=== PATIENT | female | born 1965 | race Caucasian/White ===

== ENCOUNTER 2020-08-25 07:38 | Outpatient (REF) | payer OTHER, SELFPAY ==
--- NOTE | 2020-08-25 | MM_ITS ---
EXAMINATION: MM SCREENING DIGITAL BREAST TOMOSYNTHESIS, BILATERAL CLINICAL INFORMATION: Screening. Asymptomatic. Personal history benign right breast biopsy 2012. Family history breast cancer in mother. The lifetime risk of breast cancer based on the Tyrer-Cuzick Model is 30%. COMPARISON: Mammography: 08/20/2019, 08/18/2018, 07/29/2017 TECHNIQUE: Digital breast tomosynthesis is performed in both the craniocaudal and mediolateral oblique views along with computer-aided detection (CAD). Synthesized 2D images are generated from the tomosynthesis. Additional left MLO view is provided. FINDINGS: There are scattered areas of fibroglandular density (ACR BI-RADS breast composition Category b). Breast tissue borders on predominantly fatty. Background fibroglandular densities are stable. There is no interval mass or architectural abnormality or abnormal calcifications. Again, there is biopsy clip marker central outer right breast. No significant changes from prior studies. IMPRESSION: No mammographic evidence of malignancy. ASSESSMENT: BI-RADS 1: Negative RECOMMENDATION: 1. Routine annual mammography screening. 2. The lifetime risk of breast cancer based on the Tyrer-Cuzick Model is 30%. Additional annual adjunct screening with breast MRI may be of benefit in women with a risk score of 20% or greater. This patient's information was entered into a reminder system with a target due date for their next mammogram.
== END 2020-08-25 07:39 | disposition home or self-care (01) ==
LOC: HO.MAMMO 07:38
PROVIDERS: PCP Internal Medicine; Visit Provider Internal Medicine
DX: Z12.31 Encounter for screening mammogram for malignant neoplasm of breast (principal)
CPT/HCPCS: 77063; 77067; 78014

== ENCOUNTER 2020-11-13 07:48 | Outpatient (REF) | payer OTHER, SELFPAY ==
[2020-11-13 08:40] LABS: Basophils Absolute Auto 0.1 X10*3/uL (0.0-0.2); Basophils Percent Auto 0.6 % (0-2); Eosinophils Absolute Auto 0.3 X10*3/uL (0.0-0.4); Eosinophils Percent Auto 3.2 % (0-4); Hematocrit 41.1 % (37-47); Hemoglobin 13.4 g/dl (12.0-16.0); Imm Gran Abs Auto 0.04 X10*3/uL (0.00-0.03); Imm Gran Pct Auto 0.5 % (0.0-0.4); Lymphocytes Absolute Auto 2.8 X10*3/uL (1.2-4.9); Lymphocytes Percent Auto 33.8 % (20-40); MANUAL DIFF FLAG NO; Mean Corpuscular HGB Conc 32.6 g/dl (31.0-35.0); Mean Corpuscular Hemoglobin 29.7 pg (27.0-33.0); Mean Corpuscular Volume 91.1 fL (80-98); Mean Platelet Volume 10.1 fL (9.4-12.3); Monocytes Absolute Auto 0.6 X10*3/uL (0.1-1.2); Monocytes Percent Auto 7.6 % (2-11); Neutrophils Absolute Auto 4.6 X10*3/uL (2.0-8.3); Neutrophils Percent Auto 54.3 % (45-73); Platelet Count 376 X10*3/uL (160-400); Red Blood Count 4.51 X10*6/uL (4.20-5.50); Red Cell Distribution Width 13.4 % (11.0-16.0); White Blood Count 8.4 X10*3/uL (4.8-10.8)
[2020-11-13 09:25] LABS: Alanine Aminotransferase 29 U/L (0-31); Albumin Level 4.1 g/dL (3.5-5.0); Alkaline Phosphatase 66 U/L (39-117); Anion Gap 13 (12-20); Aspartate Amino Transferase 22 U/L (5-31); Bilirubin Total 0.4 mg/dL (0.0-1.0); Blood Urea Nitrogen 15 mg/dL (9-16); Calcium 8.8 mg/dL (8.4-10.2); Carbon Dioxide 24 mmol/L (22-29); Chloride 104 mmol/L (96-108); Cholesterol 186 mg/dL; Estimated Glomerular Filt Rate > 60; Glucose Fasting 104 mg/dL (60-99); HDL Cholesterol 50 mg/dL; LDL Cholesterol Calculated 118 mg/dl; Potassium 4.4 mmol/l (3.3-5.1); Sodium 137 mmol/L (135-145); Total Protein 7.1 g/dL (6.5-8.0); Triglycerides 94 mg/dL
[2020-11-13 09:49] LABS: Thyroid Stimulating Hormone 2.68 uIU/mL (0.32-4.0); Vitamin D 25-OH Total 27.4 ng/mL (>30)
== END 2020-11-13 07:49 | disposition home or self-care (01) ==
LOC: HO.LAB 07:48
PROVIDERS: PCP Internal Medicine; Visit Provider Internal Medicine
DX: Z00.00 Encounter for general adult medical examination without abnormal findings (principal); E55.9 Vitamin D deficiency, unspecified
CPT/HCPCS: 36415; 80053; 80061; 82306; 84443; 85025

== ENCOUNTER 2021-09-07 08:28 | Outpatient (REF) | payer OTHER, SELFPAY ==
--- NOTE | ~2021-09-07 | MM_ITS ---
EXAMINATION: MM SCREENING DIGITAL BREAST TOMOSYNTHESIS, BILATERAL CLINICAL INFORMATION: Screening. Asymptomatic. The lifetime risk of breast cancer based on the Tyrer-Cuzick Model is 27%. COMPARISON: Mammography: 08/25/2020, 08/20/2019, 08/18/2018 TECHNIQUE: Digital breast tomosynthesis is performed in both the craniocaudal and mediolateral oblique views along with computer-aided detection (CAD). Synthesized 2D images are generated from the tomosynthesis. FINDINGS: There are scattered areas of fibroglandular density (ACR BI-RADS breast composition Category b). Breast tissue composition borders on predominantly fatty. Background stromal and fibroglandular densities are stable. There is a biopsy clip marker again noted central right breast. There are no significant masses, abnormal calcifications, or other abnormalities. There is asymmetry of the breast, left slightly larger, similar to prior exams. MM/MM tomosynthesis screening BI IMPRESSION: No mammographic evidence of malignancy. ASSESSMENT: BI-RADS 2: Benign RECOMMENDATION: Routine annual mammography screening. This patient's information was entered into a reminder system with a target due date for their next mammogram.
== END 2021-09-07 08:29 | disposition home or self-care (01) ==
LOC: HO.MAMMO 08:28
PROVIDERS: PCP Internal Medicine; Visit Provider Internal Medicine
DX: Z12.31 Encounter for screening mammogram for malignant neoplasm of breast (principal)
CPT/HCPCS: 77063; 77067

== ENCOUNTER 2022-09-14 07:22 | Outpatient (REF) | payer OTHER, SELFPAY ==
--- NOTE | ~2022-09-14 | MM_ITS ---
EXAMINATION: MM SCREENING DIGITAL BREAST TOMOSYNTHESIS, BILATERAL CLINICAL INFORMATION: Screening. Asymptomatic. Tyrer-Cuzick Risk Score: 24% Additional annual screening with breast MRI may be of benefit in women with a score of 20% or greater. COMPARISON: Mammography: September 07, 2021 and studies dating back to December 05, 2013. TECHNIQUE: Digital breast tomosynthesis is performed in both the craniocaudal and mediolateral oblique views along with computer-aided detection (CAD). Synthesized 2D images are generated from the tomosynthesis. FINDINGS: The breasts are almost entirely fatty (ACR BI-RADS breast composition Category a). There are no significant masses, abnormal calcifications, or other abnormalities. MM/MM tomosynthesis screening BI IMPRESSION: No significant changes from prior exam. ASSESSMENT: BI-RADS 1: Negative RECOMMENDATION: Routine annual mammography screening. This patient's information was entered into a reminder system with a target due date for their next mammogram.
== END 2022-09-14 07:23 | disposition home or self-care (01) ==
LOC: HO.MAMMO 07:22
PROVIDERS: Visit Provider Internal Medicine
DX: Z12.31 Encounter for screening mammogram for malignant neoplasm of breast (principal)
CPT/HCPCS: 77063; 77067

== ENCOUNTER 2023-05-05 07:19 | Outpatient (REF) | payer OTHER, SELFPAY ==
[2023-05-05 07:35] LABS: MANUAL DIFF FLAG NO
[2023-05-05 07:46] LABS: Basophils Absolute Auto 0.1 X10*3/uL (0.0-0.2); Basophils Percent Auto 0.6 % (0-2); Eosinophils Absolute Auto 0.3 X10*3/uL (0.0-0.4); Eosinophils Percent Auto 2.9 % (0-4); Hematocrit 43.3 % (37.0-47.0); Imm Gran Abs Auto 0.03 X10*3/uL (0.00-0.03); Imm Gran Pct Auto 0.3 % (0.0-0.4); Lymphocytes Absolute Auto 3.1 X10*3/uL (1.2-4.9); Lymphocytes Percent Auto 32.5 % (20-40); Mean Corpuscular HGB Conc 32.3 g/dl (31.0-35.0); Mean Corpuscular Hemoglobin 29.4 pg (27.0-33.0); Monocytes Absolute Auto 0.8 X10*3/uL (0.1-1.2); Monocytes Percent Auto 8.9 % (2-11); Neutrophils Absolute Auto 5.2 x10*3/uL (2.0-8.3); Neutrophils Percent Auto 54.8 % (45-73); Platelet Count 339 X10*3/uL (160-400); Red Blood Count 4.76 X10*6/uL (4.20-5.50); Red Cell Distribution Width 13.3 % (11.0-16.0); White Blood Count 9.4 X10*3/uL (4.8-10.8)
[2023-05-05 08:35] LABS: Alanine Aminotransferase 23 U/L (0-31); Albumin Level 4.1 g/dL (3.5-5.0); Alkaline Phosphatase 70 U/L (39-117); Anion Gap 11 (12-20); Aspartate Amino Transferase 18 U/L (5-31); Bilirubin Total 0.4 mg/dL (0.0-1.0); Blood Urea Nitrogen 15 mg/dL (9-16); Calcium 9.4 mg/dL (8.4-10.2); Carbon Dioxide 26 mmol/L (22-29); Chloride 107 mmol/L (96-108); Cholesterol 191 mg/dL; Estimated Glomerular Filt Rate > 60; Glucose Fasting 94 mg/dL (60-99); HDL Cholesterol 45 mg/dL; LDL Cholesterol Calculated 126 mg/dl; Potassium 4.4 mmol/L (3.3-5.1); Sodium 140 mmol/L (135-145); Total Protein 7.6 g/dL (6.5-8.0); Triglycerides 100 mg/dL
[2023-05-05 08:52] LABS: Thyroid Stimulating Hormone 3.04 uIU/mL (0.32-4.0); Vitamin D 25-OH Total 36.8 ng/mL (>30)
== END 2023-05-05 07:20 | disposition home or self-care (01) ==
LOC: HO.LAB 07:19
PROVIDERS: PCP Internal Medicine; Visit Provider Internal Medicine
DX: I10 Essential (primary) hypertension (principal); E55.9 Vitamin D deficiency, unspecified
CPT/HCPCS: 36415; 80053; 80061; 82306; 84443; 85025

== ENCOUNTER → 2023-09-21 07:30 | Outpatient (BNV) | payer OTHER, SELFPAY | PROVIDERS: PCP Internal Medicine; Visit Provider Radiology Diagnostic Radiology | DX: Z12.31 Encounter for screening mammogram for malignant neoplasm of breast (principal) | CPT/HCPCS: 77063; 77067 ==

== ENCOUNTER 2023-09-21 07:31 | Outpatient (REF) | payer OTHER, SELFPAY ==
--- NOTE | ~2023-09-21 | MM_ITS ---
EXAMINATION: MM SCREENING DIGITAL BREAST TOMOSYNTHESIS, BILATERAL CLINICAL INFORMATION: Screening. Asymptomatic. COMPARISON: Mammography: This study is compared with prior exams dating back to 2017. TECHNIQUE: Digital breast tomosynthesis is performed in both the craniocaudal and mediolateral oblique views along with computer-aided detection (CAD). Synthesized 2D images are generated from the tomosynthesis. FINDINGS: There are scattered areas of fibroglandular density (ACR BI-RADS breast composition Category b). There are no significant masses, abnormal calcifications, or other abnormalities. There is a tissue marker in the right breast from prior benign MM/MM tomosynthesis screening BI percutaneous biopsy. IMPRESSION: No mammographic evidence of malignancy. ASSESSMENT: BI-RADS BI-RADS 2 - Benign Findings RECOMMENDATION: Routine annual mammography screening. 1 year F/U This examination should not preclude the clinical evaluation of a suspicious palpable abnormality. This patient's information was entered into a reminder system with a target due date for their next mammogram.
== END 2023-09-21 07:32 | disposition home or self-care (01) ==
LOC: HO.MAMMO 07:31
PROVIDERS: PCP Internal Medicine; Visit Provider Internal Medicine
DX: Z12.31 Encounter for screening mammogram for malignant neoplasm of breast (principal)
CPT/HCPCS: 77063; 77067

== ENCOUNTER 2024-05-22 07:38 | Outpatient (REF) | payer OTHER, SELFPAY ==
[2024-05-22 07:48] LABS: MANUAL DIFF FLAG NO
[2024-05-22 09:00] LABS: Basophils Absolute Auto 0.1 X10*3/uL (0.0-0.2); Basophils Percent Auto 0.5 % (0-2); Eosinophils Absolute Auto 0.2 X10*3/uL (0.0-0.4); Eosinophils Percent Auto 2.5 % (0-4); Hematocrit 43.5 % (37.0-47.0); Hemoglobin 14.1 g/dl (12.0-16.0); Imm Gran Abs Auto 0.07 X10*3/uL (0.00-0.03); Imm Gran Pct Auto 0.8 % (0.0-0.4); Lymphocytes Absolute Auto 2.8 X10*3/uL (1.2-4.9); Mean Corpuscular HGB Conc 32.4 g/dl (31.0-35.0); Mean Corpuscular Hemoglobin 29.5 pg (27.0-33.0); Mean Platelet Volume 10.2 fL (9.4-12.3); Monocytes Absolute Auto 0.7 X10*3/uL (0.1-1.2); Monocytes Percent Auto 7.1 % (2-11); Neutrophils Absolute Auto 5.5 x10*3/uL (2.0-8.3); Neutrophils Percent Auto 59.1 % (45-73); Platelet Count 386 X10*3/uL (160-400); Red Blood Count 4.78 X10*6/uL (4.20-5.50); Red Cell Distribution Width 13.3 % (11.0-16.0); White Blood Count 9.2 X10*3/uL (4.8-10.8)
[2024-05-22 09:35] LABS: Alanine Aminotransferase 30 U/L (0-31); Albumin Level 4.2 g/dL (3.5-5.0); Alkaline Phosphatase 74 U/L (39-117); Anion Gap 14 (12-20); Aspartate Amino Transferase 23 U/L (5-31); Bilirubin Total 0.4 mg/dL (0.0-1.0); Blood Urea Nitrogen 15 mg/dL (9-16); Calcium 9.7 mg/dL (8.4-10.2); Carbon Dioxide 26 mmol/L (22-29); Chloride 105 mmol/L (96-108); Cholesterol 215 mg/dL (<200); Estimated Glomerular Filt Rate > 60; Glucose Fasting 113 mg/dL (60-99); HDL Cholesterol 54 mg/dL (>40); LDL Cholesterol Calculated 136 mg/dL (<100); Sodium 141 mmol/L (135-145); Total Protein 7.7 g/dL (6.5-8.0); Triglycerides 126 mg/dL (<150)
[2024-05-22 09:52] LABS: Free T4 (Free Thyroxine) 0.78 ng/dL (0.71-1.85); Thyroid Stimulating Hormone 2.93 uIU/mL (0.32-4.0); Vitamin D 25-OH Total 31.7 ng/mL (>30)
== END 2024-05-22 07:39 | disposition home or self-care (01) ==
LOC: HO.LAB 07:38
PROVIDERS: PCP Internal Medicine; Visit Provider Internal Medicine
DX: I10 Essential (primary) hypertension (principal); E78.00 Pure hypercholesterolemia, unspecified; R60.9 Edema, unspecified; E55.9 Vitamin D deficiency, unspecified
CPT/HCPCS: 36415; 80053; 80061; 82306; 84439; 84443; 85025

== ENCOUNTER 2024-09-26 07:27 | Outpatient (REF) | payer OTHER, SELFPAY ==
--- NOTE | ~2024-09-26 | MM_ITS ---
EXAMINATION: MM SCREENING DIGITAL BREAST TOMOSYNTHESIS, BILATERAL CLINICAL INFORMATION: Screening. Asymptomatic. COMPARISON: Mammography: Comparison is made with available priors TECHNIQUE: Digital breast mammography with tomosynthesis is performed in both the craniocaudal and mediolateral oblique views along with computer-aided detection (CAD). FINDINGS: There are scattered areas of fibroglandular density (ACR BI-RADS breast composition Category b). Right marker clip. There are no significant masses, abnormal calcifications, or other abnormalities. MM/MM tomosynthesis screening BI IMPRESSION: No mammographic evidence of malignancy. ASSESSMENT: BI-RADS BI-RADS 2 - Benign Findings RECOMMENDATION: Routine annual mammography screening. 1 year F/U This examination should not preclude the clinical evaluation of a suspicious palpable abnormality. This patient's information was entered into a reminder system with a target due date for their next mammogram. Electronically signed by: Pham Mar DO 10/03/2024 03:14 PM [facility]
== END 2024-09-26 07:28 | disposition home or self-care (01) ==
LOC: HO.MAMMO 07:27
PROVIDERS: PCP Internal Medicine; Visit Provider Internal Medicine
DX: Z12.31 Encounter for screening mammogram for malignant neoplasm of breast (principal)
CPT/HCPCS: 77063; 77067

== ENCOUNTER → 2024-09-26 07:30 | Outpatient (BNV) | payer OTHER, SELFPAY | PROVIDERS: PCP Internal Medicine; Visit Provider Internal Medicine | DX: Z12.31 Encounter for screening mammogram for malignant neoplasm of breast (principal) | CPT/HCPCS: 77063; 77067 ==

== ENCOUNTER 2025-01-02 08:50 | Outpatient (REF) | payer OTHER, SELFPAY ==
[2025-01-09 14:57] LABS: HPV Genotype 16 Negative (Negative); HPV Genotype 18 Negative (Negative); HPV High Risk Negative (Negative)
== END 2025-01-02 08:51 | disposition home or self-care (01) ==
LOC: HO.LNP 08:50
PROVIDERS: PCP Internal Medicine; Visit Provider Advanced Practice Midwife
DX: Z01.419 Encounter for gynecological examination (general) (routine) without abnormal findings (principal)
CPT/HCPCS: 87626; 88175

== ENCOUNTER 2025-01-02 08:50 | Outpatient (AMB) | payer OTHER, SELFPAY ==
--- NOTE | 2025-01-02 08:55 | A.OFFVIS_ITS ---
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 She is doing well with business development consultant concerns: Left groin itching for the last few months, has not tried any [id number] medications. No pelvic pain but does admit to having abdominal bloating. Currently not sexually active. Denies any vaginal dryness or irritation. STI testing offered; she declines. Taking vitamin D. Not eating healthy, no exercise. Last pap smear; 2015 or , she reports normal history. Last mammogram; 2023. Colonoscopy is UTD. Due 2027-hx. polyps. Denies any family history of ovarian or colon cancer. FH breast cancer. [facility] Medical History (Updated 01/03/25 @ 13:26 by Izabela Fischer CNM) Abdominal bloating Lichen simplex chronicus Hypertension Surgical History H/O colonoscopy Family History Mother Hypertension History of breast cancer Maternal Aunt History of breast cancer Father Hypertension Social History Alcohol intake: current Alcohol intake frequency: holidays/special occasions only Patient Tobacco Use Status: Former Tobacco user Female Reproductive History Menstrual Total pregnancies: 0 Date of Mammogram: 09/26/24 (Birad 2) Review of Systems Const All systems reviewed & are unremarkable except as noted in HPI and below Reports as per HPI Eyes Reports no additional complaints ENT Reports no additional complaints Card Reports no additional complaints Resp Reports no additional complaints GI Reports as per HPI and Reports no additional complaints Reports as per HPI Musc Reports no additional complaints Skin/Breast Reports as per HPI Neuro Reports no additional complaints Psych Reports no additional complaints Endo Reports no additional complaints Rian/Lymph Reports no additional complaints Aller/Immun Reports no additional complaints Physical Exam Vital Signs: Last Vital Signs BP 110/64 01/02/25 08:57 BMI result Body Mass Index 48.1 Const General: cooperative, healthy appearing, no acute distress, well developed and alert Orientation/consciousness: patient oriented x3 HEENT Head: Yes normal to inspection Eyes General: appearance normal, both eyes and all related structures Neck Neck: Yes normal visual inspection Thyroid: Thyroid normal Chest Chest palpation & inspection: normal inspection of the chest and other (no puckering, dimpling, peau de orange, retraction, discharge, masses) Breast/axilla inspection: normal inspection of the breasts Breast/axilla palpation: normal palpation of the breasts Resp Effort & Inspection: normal respiratory effort GI Inspection: Yes normal to inspection and Yes obesity (Large, rounded) Palpation (GI): Soft to palpation Rectal Exam - Female: deferred Other: Groin crease assessment and upper thigh skin-noted hyperpigmentation on contact surface of bilateral thighs most likely due to lichen simplex chronicus, crease and left groin reddened rash most likely due to elastic on underwear, no signs of fungal infection, no lesions External Female Exam: normal external appearance and normal appearance of the urethra Speculum Exam - Vagina: normal appearance of the vagina (Deep and narrowing at the base, atrophic changes), normal palpation, normal vaginal discharge and vagina atrophic Speculum Exam - Cervix: normal appearance of the cervix, normal palpation and Other cervical findings present (Atrophic changes bled slightly with Pap) Bimanual exam- vagina & uterus: normal bimanual exam, normal palpation, normal palpation and other (Very limited exam due to body habitus, unable to palpate ovaries) Bimanual Exam- Adnexa, other: no masses (unable to palpate ovaries) Skin General skin exam: no rashes or lesions noted Rashes: no rashes Neuro General: patient oriented x3 Cognition (Neuro): normal cognition Extrem General: Yes normal to inspection Psych Attitude: cooperative Thought process: Normal thought process present Assessment & Plan Assessment & Plan (1) Lichen simplex chronicus: Code(s): L28.0 - Lichen simplex chronicus Category: Medical Plan: Skin irritation most likely due to chronic rubbing, treatment with corticosteroid ointment, where boy shorts no elastics in the groin region, long- term goals of weight loss to prevent skin from opposing edges chronically irritating due to close approximation and constant friction. Discuss treatment with topical corticosteroid for a week, to call if there is any concerns. (2) Encounter for gynecological examination (general) (routine) without abnormal findings: Code(s): Z01.419 - Encounter for gynecological examination (general) (routine) without abnormal findings Plan: Discussed: Current recommendations for pap smears per ASCCP guidelines. Breast awareness, periodic self breast exams and yearly mammogram. Maintain a healthy lifestyle, well balanced diet including Calcium 1,200 mg and Vitamin D 600 IU daily, and routine exercise. Use of condoms for STI prevention if indicated. Pelvic ultrasound due to very limited anatomical assessment secondary to body habitus. Follow up pending results. Contact the office with any postmenopausal bleeding. Patient verbalizes understanding and agrees to the plan of care. She was given opportunity to ask questions and all questions were answered to the best of my ability. RTO in 1 year for annual business development consultant exam. (3) Abdominal bloating: Code(s): R14.0 - Abdominal distension (gaseous) Category: Medical Plan: Plan pelvic ultrasound and follow up in person for test results. Plan This note is constructed using voice recognition software. While every effort has been made to ensure accuracy, dot compliance specialist errors may have been included. Orders: Orders HPV High risk Today Z01.419 - Encounter for gynecological examination (general) (routine) without abnormal findings, Z12.4 - Encounter for screening for malignant neoplasm of cervix US pelvic and transvaginal 01/02/25 E66.9 - Obesity, unspecified, Z00.00 - Encounter for general adult medical examination without abnormal findings Pap Smear 01/02/25 Z01.419 - Encounter for gynecological examination (general) (routine) without abnormal findings Medications: New betamethasone dipropionate 0.05% 1 appl topical BID 45 grams 0RF Coding Level of Care Code Est Pt Level 2 (22089) New Pt Prev Care 40-64y(80852) Diagnoses Lichen simplex chronicus L28.0 Encounter for gynecological examination (general) (routine) without abnormal findings Z01.419 Abdominal bloating R14.0
[2025-01-02 08:57] VITALS: BP 110/64; BMI 48.1
== END 2025-01-02 10:36 | disposition home or self-care (01) ==
PROVIDERS: PCP Internal Medicine; Visit Provider Advanced Practice Midwife
DX: Z01.419 Encounter for gynecological examination (general) (routine) without abnormal findings (principal); L28.0 Lichen simplex chronicus; R14.0 Abdominal distension (gaseous)
CPT/HCPCS: 99212; 99386; 99459

== ENCOUNTER 2025-01-23 14:27 | Outpatient (REF) | payer OTHER, SELFPAY ==
--- NOTE | ~2025-01-23 | US_ITS ---
EXAMINATION: US PELVIS TRANSABDOMINAL AND TRANSVAGINAL HISTORY: R14.0 - Abdominal distension (gaseous) COMPARISON: There are no prior studies for comparison. TECHNIQUE: Transabdominal and endovaginal real-time 2D black-scale ultrasound was performed. FINDINGS: Uterus: The uterus is normal in size, measuring 7.7 x 3.8 x 5.2 cm. Myometrium has a normal echotexture. No fibroids are identified. There are nabothian cysts in the cervix. Endometrium: The endometrial stripe measures 7 mm in thickness. Right ovary: The right ovary is not identified. Left ovary: The left ovary is not identified. Pelvic fluid: none. US/US pelvic and transvaginal IMPRESSION: Nabothian cysts in the cervix. The uterus is otherwise unremarkable in appearance. The ovaries are not identified. Electronically signed by: Mp Arias MD 01/25/2025 10:34 AM [facility]
== END 2025-01-23 14:28 | disposition home or self-care (01) ==
LOC: HO.US 14:27
PROVIDERS: PCP Internal Medicine; Visit Provider Advanced Practice Midwife
DX: R14.0 Abdominal distension (gaseous) (principal)
CPT/HCPCS: 76830; 76856

== ENCOUNTER → 2025-01-23 14:30 | Outpatient (BNV) | payer OTHER, SELFPAY | PROVIDERS: PCP Internal Medicine; Visit Provider Radiology Diagnostic Radiology | DX: N88.8 Other specified noninflammatory disorders of cervix uteri (principal) | CPT/HCPCS: 76830; 76856 ==

== ENCOUNTER 2025-02-06 14:34 | Outpatient (AMB) | payer OTHER, SELFPAY ==
--- NOTE | 2025-02-06 14:44 | MHC.OFFVIS ---
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 She has a history of abdominal bloating, and a very limited pelvic exam with her last visit. She denies any pelvic pain or vaginal bleeding. [facility] Medical History (Updated 01/03/25 @ 13:26 by Izabela Fischer CNM) Abdominal bloating Lichen simplex chronicus Hypertension Surgical History H/O colonoscopy Family History Mother Hypertension History of breast cancer Maternal Aunt History of breast cancer Father Hypertension Social History Alcohol intake: current Alcohol intake frequency: holidays/special occasions only Patient Tobacco Use Status: Former Tobacco user Review of Systems Const All systems reviewed & are unremarkable except as noted in HPI and below Endo Reports no additional complaints Physical Exam Const General: cooperative, healthy appearing and no acute distress Psych Appearance: well kempt Attitude: cooperative Thought process: Normal thought process present Results Reviewed Results Reviewed: [address] [address] Ultrasound Report Signed Patient: Aleyda Quintana MR#: [id number] : 1965 Acct:[id number] Age/Sex: 59 / F ADM Date: 01/23/25 Loc: HO.US Attending Dr: Izabela Fischer CNM Ordering Physician: Izabela Fischer CNM Date of Service: 01/23/25 Procedure(s): US pelvic and transvaginal Accession Number(s): [id number] cc: Nicko Alvarez MD; Izabela Fischer CNM~ EXAMINATION: US PELVIS TRANSABDOMINAL AND TRANSVAGINAL HISTORY: R14.0 - Abdominal distension (gaseous) COMPARISON: There are no prior studies for comparison. TECHNIQUE: Transabdominal and endovaginal real-time 2D black-scale ultrasound was performed. FINDINGS: Uterus: The uterus is normal in size, measuring 7.7 x 3.8 x 5.2 cm. Myometrium has a normal echotexture. No fibroids are identified. There are nabothian cysts in the cervix. Endometrium: The endometrial stripe measures 7 mm in thickness. Right ovary: The right ovary is not identified. Left ovary: The left ovary is not identified. Pelvic fluid: none. US/US pelvic and transvaginal IMPRESSION: Nabothian cysts in the cervix. The uterus is otherwise unremarkable in appearance. The ovaries are not identified. Electronically signed by: Mp Arias MD 01/25/2025 10:34 AM EST RP Dictated By: Mp Arias MD Signed By: <Electronically signed by Mp Arias MD in OV> 01/25/25 1034 DD/ 1441 TD/TT: 01/23/25 1451 Lab Intern: Assessment & Plan Assessment & Plan (1) Encounter to discuss test results: Code(s): Z71.2 - Person consulting for explanation of examination or test findings Plan: Normal pelvic exam limitations with study. Advised to call if there is any vaginal bleeding or any pelvic pain. Keep annual exam appointment for 01/10/2026. The patient expressed understanding and agreement with the plan of care. Plan Discussed: US/US pelvic and transvaginal IMPRESSION: Nabothian cysts in the cervix. The uterus is otherwise unremarkable in appearance. The ovaries are not identified. Electronically signed by: Mp Arias MD 01/25/2025 10:34 AM EST RP The patient expressed understanding and agreement with the plan of care. All of her questions and concerns were addressed to the best of my ability. This note is constructed using voice recognition software. While every effort has been made to ensure accuracy, architect manager errors may have been included. Coding Level of Care Code Est Pt Level 2 (60381) Diagnoses Encounter to discuss test results Z71.2
== END 2025-02-06 16:06 | disposition home or self-care (01) ==
LOC: HO.HWS 14:35
PROVIDERS: PCP Internal Medicine; Visit Provider Advanced Practice Midwife
DX: Z71.2 Person consulting for explanation of examination or test findings (principal)
CPT/HCPCS: 99212

== ENCOUNTER 2025-05-17 10:24 | Outpatient (AMB) | payer OTHER, SELFPAY ==
--- NOTE | 2025-05-17 10:26 | A.OFFPC_ITS ---
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 Required: No Accompanied by: Self / Same As Patient Allergies clindamycin (Clindamycin) Allergy (Mild, Verified 05/17/25 10:27) DIFFICULTY BREATHING penicillin V Allergy (Unknown, Verified 05/17/25 10:27) anaphylaxis Gantrocin Allergy (Unknown, Uncoded 05/17/25 10:27) rash, swelling HPI HPI Comments History of Present Illness Details 60-year-old female with history of hyper lipidemia, hypertension, vitamin-D deficiency, empty sella syndrome, history of migraines, history of melanoma, and severe obesity presents to the office today for management of chronic conditions as well as annual physical exam as well as to establish care. She currently lives at home with her brother and is employed. Denies any regular alcohol use. She did quit smoking more than 15 years ago. No illicit drug use. Hypertension-BP in the office 116/74 on recheck. Compliant with lisinopril 5 mg daily. History of melanoma-s/p excision. Was previously following with new ongoing Dermatology but has not been seen in several years. Vitamin-D deficiency-reports taking 2000 units of vitamin-D on a daily basis Severe obesity-BMI 48.5. Not working on weight loss at this time. Concerns: Reports for the last several years, she has been waking up in the middle of the night with right-sided paresthesias from the scalp down the right side. There is no weakness. No headaches, vision issues, facial droop, aphasia, dysphagia. There was no gait instability. She states that adjusting her pillow does help or turning over on to ortho side is also helpful. There is also occasional paresthesias of the right face. 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 Five year follow-up for cervical cancer screening Last mammogram 09/2024, negative for malignancy. One year follow-up advised Last screening colonoscopy 05/17/2017 with 10 year follow-up advised. Dr. Bhatt Past family, social, surgical and medical history reviewed PHQ-9 score 2, pramod 7 score 0 ROS: General: No fevers, malaise, unintentional weight loss HEENT: No blurred vision, diplopia. No sore throat, nasal congestion, rhinorrhea, sinus pain, ear pain Neck - no adenopathy Cardiovascular: No chest pain, palpitations, or leg edema Respiratory: No shortness of breath, wheezing, cough GI: No abdominal pain, nausea, vomiting, diarrhea, constipation, melena, hematochezia : No dysuria, hematuria, increased urinary frequency, decreased urinary output MSK: No myalgia, back pain, arthralgias Neuro: No headaches, weakness, paresthesias Psych: no depression/anxiery. No AH/VH. No SI/HI Skin: No rashes or lesions EXAM: Constitutional - Awake and Alert, No apparent distress Eyes - PERRLA, EOMI. Anicteric Nose- septum midline, nares clear, no sinus tenderness Mouth/throat- mucosa moist, tongue and uvula midline, no erythema/edema or tonsillar adenopathy. Neck-trachea midline, thyroid symmetric without palpable nodules, no adenopathy Cardiovascular - S1S2, RRR, No edema Respiratory - Normal lung expansion, Normal respiratory effort, No respiratory distress, CTA bilaterally Gastrointestinal - NT / ND; +BS; No rebound or guarding - No CVA tenderness Extremities - no calf tenderness bilaterally, no swelling Musculoskeletal - Normal inspection, normal ROM Skin - Warm/Dry Neurological - Alert & oriented x3, CN II-XII in tact, 5/5 strength BUE and BLE Psychological - Appropriate affect PFSH Medical History (Updated 05/17/25 @ 17:53 by NICK Sánchez) Melanoma HLD (hyperlipidemia) Vitamin D deficiency Abdominal bloating Lichen simplex chronicus Hypertension Surgical History H/O colonoscopy Family History (Updated 05/17/25 @ 10:56 by NICK Sánchez) Mother Hypertension History of breast cancer Maternal Aunt History of breast cancer Father Hypertension Leukemia Social History Alcohol intake: current Alcohol intake frequency: holidays/special occasions only Patient Tobacco Use Status: Former Tobacco user Questionnaire PHQ-9 Over the last 2 weeks, how often have you been bothered by any of the following problems? 1. Little interest or pleasure in doing things: not at all 2. Feeling down, depressed, or hopeless: not at all 3. Trouble falling or staying asleep, or sleeping too much: several days 4. Feeling tired or having little energy: several days 5. Poor appetite or overeating: not at all 6. Feeling bad about yourself - or that you are a failure or have let yourself or your family down: not at all 7. Trouble concentrating on things, such as reading the newspaper or watching television: not at all 8. Moving or speaking so slowly that other people could have noticed. Or the opposite - being so fidgety or restless that you have been moving around a lot more than usual: not at all 9. Thoughts that you would be better off or of hurting yourself in some way: not at all Total score: 2 Depression Screening Interpretation: Negative Depression Screening Done: Yes 97958 - PHQ-9 Billing: Yes Source: Developed by Drs. Mp Chin, Mckenzie Henderson, Elton Rojas and colleagues, with an educational alyson from [employer] (formerly [employer]). Thrive Questionnaire Date Thrive assessed: 05/17/25 I am a: Patient What is your living situation today?: I have a steady place to live Within the past 12 months, did the food you bought not last and you didn't have the money to get more?: Never true Within the past 12 months, did you worry whether your food would run out before you got money to buy more?: Never true Do you have trouble paying for medicines?: Yes Do you have trouble getting transportation to medical appointments?: Yes Do you have trouble paying your heating and electricity bill?: Yes Do you have trouble taking care of your child, family member or friend?: Yes Do you have trouble with day-to-day activities such as bathing, preparing meals, shopping, managing finances, etc.?: Yes Are you currently unemployed and looking for a job?: Yes Are you interested in more education?: Yes Please select the resources that you would like help with: None THRIVE Score: 2 PRAMOD-7 AMB Questionnaire PRMAOD-7 Date PRAMOD - 7 assessed: 05/17/25 Feeling nervous, anxious, or on edge: 0 = Not at all Not being able to stop or control worryin = Not at all Worrying too much about different things: 0 = Not at all Trouble relaxin = Not at all Being so restless that it is hard to sit still: 0 = Not at all Becoming easily annoyed or irritable: 0 = Not at all Feeling afraid as if something awful might happen: 0 = Not at all Total PRAMOD-7 score (0-4 normal; 5-9 mild; 10-14 moderate; 15-21 severe): 0 Source: Developed by Drs. Mp Chin, Mckenzie Henderson, Elton Rojas and colleagues, with an educational alyson from [employer] (formerly [employer]). PRAMOD-7 Assessment Billing PRAMOD-7 Assessment Tool: PRAMOD-7 Assessment 26226 Physical exam (Primary Care) Vital Signs: Last Vital Signs Temp 97.5 F 05/17/25 10:36 Pulse 71 05/17/25 10:36 Resp 18 05/17/25 10:36 BP 116/74 05/17/25 11:06 Pulse Ox 95 05/17/25 10:36 Oxygen Delivery Method Room Air 05/17/25 10:36 BMI result Body Mass Index 48.5 Tobacco/Smoking Status: Tobacco use Status Patient Tobacco Use Status Former Tobacco user 05/17/25 10:27 PHQ-9: PHQ-9 Score PHQ-9: Total score 2 05/17/25 10:42 Depression Screening Interpretation: Negative Thrive Assessment: Date of Thrive Assessment Date Thrive assessed 05/17/25 05/17/25 10:39 Coding Level of Care Code Est Pt Level 4 (85835) Est Pt Prev Care 40-64y(50305) Diagnoses Routine medical exam Z00.00 Hypertension I10 HLD (hyperlipidemia) E78.5 Vitamin D deficiency E55.9 Right sided numbness R20.0 Melanoma C43.9 Additional Codes PHQ-9 - 72434 - PHQ-9 Billing: Yes ([id number]) PRAMOD-7 Assessment Billing - PRAMOD-7 Assessment Tool: PRAMOD-7 Assessment 23416 ([id number]) Assessment & Plan Assessment & Plan (1) Routine medical exam: Code(s): Z00.00 - Encounter for general adult medical examination without abnormal findings Plan: 60-year-old female presenting for annual physical exam. She is encouraged to pursue weight loss efforts. History reviewed as above. Health maintenance up-to-date (2) Hypertension: Code(s): I10 - Essential (primary) hypertension Category: Medical Plan: Controlled on recheck. Continue lisinopril 5 mg daily. Will evaluate renal function and electrolyte levels today (3) HLD (hyperlipidemia): Code(s): E78.5 - Hyperlipidemia, unspecified Category: Medical Plan: Lipid panel ordered. ASCVD risk score will be calculated pending results of studies. Recommend diet low in saturated fats and highly processed foods. Weight loss efforts encouraged (4) Vitamin D deficiency: Code(s): E55.9 - Vitamin D deficiency, unspecified Category: Medical Plan: Vitamin-D levels to be assessed (5) Right sided numbness: Code(s): R20.0 - Anesthesia of skin Category: Medical Plan: Suspect musculoskeletal in nature given improvements with positioning. However recurrent sided paresthesias ranging from the scalp to the feet is concerning for other etiologies. Will assess MRI of the brain. Pending results of study, we will consider referral to Neurology (6) Melanoma: Code(s): C43.9 - Malignant melanoma of skin, unspecified Category: Medical Plan: Strongly encouraged follow-up with Dermatology Plan Routine screening labs as ordered below Continue with screening mammograms, Pap smears, colonoscopies Continue following for annual skin exams and use sun protection Annual eye exams Wear seat belt in car Recommend regular exercise and healthy diet Follow-up in 6 months Orders: Orders Basic Metabolic Panel Today E55.9 - Vitamin D deficiency, unspecified, E78.5 - Hyperlipidemia, unspecified, Z00.00 - Encounter for general adult medical examination without abnormal findings Hemoglobin A1c Today E55.9 - Vitamin D deficiency, unspecified, E78.5 - Hyperlipidemia, unspecified, Z00.00 - Encounter for general adult medical examination without abnormal findings Lipid Panel Today E55.9 - Vitamin D deficiency, unspecified, E78.5 - Hyperlipidemia, unspecified, Z00.00 - Encounter for general adult medical exam ination without abnormal findings TSH reflex Free T4 Today E55.9 - Vitamin D deficiency, unspecified, E78.5 - Hyperlipidemia, unspecified, Z00.00 - Encounter for general adult medical examination without abnormal findings Vitamin B12 Today E55.9 - Vitamin D deficiency, unspecified, E78.5 - Hyperlipidemia, unspecified, Z00.00 - Encounter for general adult medical examination without abnormal findings Complete Blood Count Auto Diff Today E55.9 - Vitamin D deficiency, unspecified, E78.5 - Hyperlipidemia, unspecified, Z00.00 - Encounter for general adult medical examination without abnormal findings Liver Panel Today E55.9 - Vitamin D deficiency, unspecified, E78.5 - Hyperlipidemia, unspecified, Z00.00 - Encounter for general adult medical examination without abnormal findings Vitamin D 25-OH Total Today E55.9 - Vitamin D deficiency, unspecified, E78.5 - Hyperlipidemia, unspecified, Z00.00 - Encounter for general adult medical examination without abnormal findings MR cervical spine wo con Today R20.0 - Anesthesia of skin
[2025-05-17 10:36] VITALS: BP 134/92; PULSE 71; RESP 18; TEMP 36.4; O2SAT 95; BMI 48.5
[2025-05-17 11:06] VITALS: BP 116/74
--- OUTSIDE RECORDS SUMMARY | 2025-05-17 11:10 | XMS_ITS | Patient Health Record ---
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
== END 2025-05-17 14:39 | disposition home or self-care (01) ==
LOC: HO.HMCHD 10:24
PROVIDERS: PCP Internal Medicine; Visit Provider Physician Assistant
DX: Z00.00 Encounter for general adult medical examination without abnormal findings (principal); C43.9 Malignant melanoma of skin, unspecified; I10 Essential (primary) hypertension; E78.5 Hyperlipidemia, unspecified; E55.9 Vitamin D deficiency, unspecified; R20.0 Anesthesia of skin

== ENCOUNTER 2025-05-17 11:28 | Outpatient (REF) | payer OTHER, SELFPAY ==
[2025-05-17 13:06] LABS: MANUAL DIFF FLAG NO
[2025-05-17 13:16] LABS: Basophils Absolute Auto 0.1 X10*3/uL (0.0-0.2); Basophils Percent Auto 0.6 % (0-2); Eosinophils Absolute Auto 0.2 X10*3/uL (0.0-0.4); Eosinophils Percent Auto 2.7 % (0-4); Hematocrit 42.1 % (37.0-47.0); Imm Gran Abs Auto 0.02 X10*3/uL (0.00-0.03); Imm Gran Pct Auto 0.2 % (0.0-0.4); Lymphocytes Absolute Auto 2.7 X10*3/uL (1.2-4.9); Lymphocytes Percent Auto 33.1 % (20-40); Mean Corpuscular HGB Conc 33.3 g/dl (31.0-35.0); Mean Corpuscular Hemoglobin 29.8 pg (27.0-33.0); Mean Corpuscular Volume 89.6 fL (80.0-98.0); Mean Platelet Volume 10.1 fL (9.4-12.3); Monocytes Absolute Auto 0.7 X10*3/uL (0.1-1.2); Neutrophils Absolute Auto 4.4 x10*3/uL (2.0-8.3); Neutrophils Percent Auto 54.4 % (45-73); Platelet Count 319 X10*3/uL (160-400); Red Cell Distribution Width 13.3 % (11.0-16.0); White Blood Count 8.1 X10*3/uL (4.8-10.8)
[2025-05-17 13:28] LABS: Estimated Average Glucose 117 mg/dL; Hemoglobin A1C 141.5899 umol/L; Hemoglobin A1c % 5.7 % (<6.0); Total Hemoglobin (HGBA1C) 3670.2182 umol/L
[2025-05-17 13:45] LABS: Alanine Aminotransferase 43 U/L (0-31); Albumin Level 4.3 g/dL (3.5-5.0); Alkaline Phosphatase 69 U/L (39-117); Anion Gap 13 (12-20); Aspartate Amino Transferase 38 U/L (5-31); Bilirubin Direct 0.1 mg/dL (0.0-0.5); Bilirubin Total 0.4 mg/dL (0.0-1.0); Blood Urea Nitrogen 15 mg/dL (9-16); Calcium 9.4 mg/dL (8.4-10.2); Carbon Dioxide 24 mmol/L (22-29); Chloride 106 mmol/L (96-108); Cholesterol 199 mg/dL (<200); Estimated Glomerular Filt Rate > 60; Glucose Random 87 mg/dL (60-115); HDL Cholesterol 49 mg/dL (>40); LDL Cholesterol Calculated 121 mg/dL (<100); Potassium 4.1 mmol/L (3.3-5.1); Sodium 139 mmol/L (135-145); Total Protein 7.5 g/dL (6.5-8.0); Triglycerides 147 mg/dL (<150)
[2025-05-17 13:47] LABS: TSH reflex Free T4 2.49 uIU/mL (0.32-4.0); Vitamin D 25-OH Total 35.9 ng/mL (>30)
[2025-05-17 14:11] LABS: Vitamin B12 444 pg/mL (200-900)
== END 2025-05-17 11:29 | disposition home or self-care (01) ==
LOC: HO.10HDL 11:28
PROVIDERS: Visit Provider Physician Assistant
DX: Z00.00 Encounter for general adult medical examination without abnormal findings (principal); I10 Essential (primary) hypertension; E78.5 Hyperlipidemia, unspecified; E55.9 Vitamin D deficiency, unspecified; R20.0 Anesthesia of skin; C43.9 Malignant melanoma of skin, unspecified; E66.9 Obesity, unspecified; Z68.42 Body mass index [BMI] 45.0-49.9, adult; Z13.31 Encounter for screening for depression; Z13.39 Encounter for screening examination for other mental health and behavioral disorders; Z79.899 Other long term (current) drug therapy; Z13.1 Encounter for screening for diabetes mellitus
CPT/HCPCS: 36415; 80048; 80061; 80076; 82306; 82607; 83036; 84443; 85025; 96127

== ENCOUNTER 2025-05-30 19:04 | Outpatient (REF) | payer OTHER, SELFPAY ==
--- NOTE | ~2025-05-30 | MR_ITS ---
CLINICAL HISTORY: R20.0 - Anesthesia of skin MR cervical spine without gadolinium Comparison: None provided Findings: Cervical alignment is maintained. Vertebral body height is maintained. No bone marrow edema. No bone lesion or acute fracture. Multilevel disc desiccation in mild degeneration especially at C6-7 with Modic type 2 degenerative endplate marrow changes at C6-7. Cerebellar tonsils are normal in position. The cord is normal in size, morphology and signal intensity. No cord impingement. Minimal spondylotic disc bulges at C5-6 and C6-7 with no significant canal or foraminal stenosis. Facet arthropathy with mild left foraminal stenosis at C2-3. Prominent retro cerebellar CSF space may represent jannette cisterna magna versus an arachnoid cyst. IMPRESSION: 1. No acute findings. 2. Minimal spondylotic disc bulges at C5-6 and C6-7. 3. Facet arthropathy with mild left neural foraminal stenosis at C2-3. This document has been electronically signed by: Madelin Sanchez MD on 06/01/2025 19:17:41
== END 2025-05-30 19:05 | disposition home or self-care (01) ==
LOC: HO.MRI 19:04
PROVIDERS: PCP Internal Medicine; Visit Provider Physician Assistant
DX: R20.0 Anesthesia of skin (principal)
CPT/HCPCS: 72141

== ENCOUNTER → 2025-05-30 19:05 | Outpatient (BNV) | payer OTHER, SELFPAY | PROVIDERS: PCP Internal Medicine; Visit Provider Specialist | DX: M47.812 Spondylosis without myelopathy or radiculopathy, cervical region (principal) | CPT/HCPCS: 72141 ==

== ENCOUNTER 2025-10-02 07:28 | Outpatient (REF) | payer OTHER, SELFPAY ==
--- OUTSIDE RECORDS SUMMARY | 2025-10-02 07:30 | XMS_ITS | Patient Health Record ---
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
== END 2025-10-02 07:29 | disposition home or self-care (01) ==
LOC: HO.MAMMO 07:28
PROVIDERS: PCP Physician Assistant; Visit Provider Physician Assistant
DX: Z12.31 Encounter for screening mammogram for malignant neoplasm of breast (principal)
CPT/HCPCS: 77063; 77067

== ENCOUNTER → 2025-10-02 07:30 | Outpatient (BNV) | payer OTHER, SELFPAY | PROVIDERS: PCP Physician Assistant; Visit Provider Internal Medicine | DX: Z12.31 Encounter for screening mammogram for malignant neoplasm of breast (principal) | CPT/HCPCS: 77063; 77067 ==